=== PATIENT | female | born 1955 | race Caucasian/White ===

== ENCOUNTER 2024-07-09 06:13 | Day surgery (SDC) | payer MEDICARE, OTHER, SELFPAY ==
[2024-07-01 09:49] VITALS: BMI 30.5
[2024-07-09 06:46] VITALS: BP 135/72; PULSE 66; RESP 18; TEMP 36.8; O2SAT 98; BMI 30.3
--- NOTE | 2024-07-09 07:16 | EXP.ANES.CKL ---
[facility] Disclaimer: The information contained in this section may have been updated after the patient was seen, as this information can be updated by other users. Medical History History of COVID-19 Arthritis History of back pain Hyperlipidemia Hypertension Surgical History History of hysterectomy Family History Grandmother Bone cancer Social History Smoking Status: Never smoker alcohol intake: never substance use type: denies use current occupational status: retired Travel in the last 8 weeks: None caffeine: No [facility] Anesthesia Checklist Patient Identification Patient Identification: Verbal (Name & ) Structural Data Admitted From: Home Planned Operative Procedure/s: colonoscoy Consent for Planned Operative Procedure(s) Verified: Yes Airway Assessment Mallampati Score:: Class II C-Spine Mobility Assessed: Yes TMJ Mobility Assessed: Yes Dentition: Good Dentition Neurological Assessment Level of Consciousness: Awake, Alert and Appropriate Anesthesia Plan Anesthesia Risk discussed: Yes Anesthesia Plan: Verified ASA Class: II Anesthesia Type: MAC
[2024-07-09 07:37] VITALS: O2SAT 98
--- NOTE | 2024-07-09 07:37 | EXP.HP ---
History of Present Illness *Admission Date: 07/09/24 *History of present illness: Mrs. Barker is a 69-year-old female who is here for bright red rectal bleeding and diarrhea. The examination is deemed medically necessary for colonoscopy. The patient has been seen, interviewed and examined prior to the procedure by both myself and the anesthesia provider. [facility] Disclaimer: The information contained in this section may have been updated after the patient was seen, as this information can be updated by other users. Medical History (Updated 07/09/24 @ 07:42 by Augustine Young II, MD) History of COVID-19 Arthritis History of back pain Hyperlipidemia Hypertension Surgical History History of hysterectomy Family History Grandmother Bone cancer Social History (Updated 07/09/24 @ 07:17 by Benedicto Samuel CRNA) Smoking Status: Never smoker alcohol intake: never substance use type: denies use current occupational status: retired Travel in the last 8 weeks: None caffeine: No Review of Systems Review of Systems Review of systems (narrative): Negative *Cardiovascular Comments: Negative *Gastrointestinal Comments: Negative *Genitourinary Comments: Negative *Musculoskeletal Comments: Negative *Neurologic Comments: Negative Meds Home Medications and Allergies Home Medications ?Medication ?Instructions ?Recorded ?Confirmed ?Type sodium,potassium,mag sulfates 17.5 See Rx Instructions PO .COMPLEX 06/26/24 Rx gram-3.13 gram-1.6 gram oral soln #354 mL (Suprep Bowel Prep Kit) aspirin 81 mg capsule 81 mg PO HS 07/01/24 07/01/24 History diclofenac sodium 75 mg 75 mg PO DAILY PRN . 07/01/24 07/01/24 History tablet,delayed release estradiol 1 mg tablet 1 mg PO DAILY 07/01/24 07/01/24 History simvastatin 20 mg tablet 20 mg PO HS 07/01/24 07/01/24 History valsartan 320 1 tab PO DAILY 07/01/24 07/01/24 History mg-hydrochlorothiazide 12.5 mg tablet methocarbamol 500 mg tablet 500 mg PO HS PRN Pain 07/02/24 07/02/24 History New Prescriptions to Start Prescriptions: Allergies Allergy/AdvReac Type Severity Reaction Status Date / Time latex Allergy Rash Verified 07/01/24 09:32 Exam Data for Last 24 hours Vital signs and Labs for Last 24 Hours: Temp Pulse Resp BP Pulse Ox O2 Del Method 98.2 F 66 18 135/72 98 Room Air 07/09/24 06:46 07/09/24 06:46 07/09/24 06:46 07/09/24 06:46 07/09/24 06:46 07/09/24 06:46 I & O for Last 24 hours: Intake & Output 07/06/24 07/07/24 07/08/24 07/09/24 23:59 23:59 23:59 23:59 Weight 166 lb *Routine HEENT Exam Head: Present normocephalic Eye: Present EOMI and PERRL ENT: Present mucous membranes moist *Routine Neck Exam Neck: Present supple *Routine Respiratory Exam Respiratory: Present CTA bilaterally *Routine Cardiovascular Exam Cardiovascular: Present RRR *Routine Abdominal Exam Abdominal: Present soft and normoactive bowel sounds; Absent tenderness *Routine Rectal Exam Rectal:: deferred *Routine Genitalia Exam Genitalia:: deferred *Routine Extremities Exam Extremities: Absent cyanosis, clubbing or edema *Routine Skin Exam Skin: Present warm; Absent rash *Routine Neurological Exam Neurological: Present alert and oriented X3 Assessment and Plan *Assessment and plan (1) Bright red rectal bleeding: Status: Acute Category: Medical Code(s): K62.5 - Hemorrhage of anus and rectum (2) Diarrhea: Status: Acute Category: Medical Code(s): R19.7 - Diarrhea, unspecified (3) Change in bowel habits: Status: Acute Category: Medical Code(s): R19.4 - Change in bowel habit Plan A/P: 1. Bright red rectal bleeding intermittently with change in bowel habits and diarrhea is the preprocedural diagnosis. The patient will be anesthetized/sedated using MAC sedation. The patient has been seen and examined. Cardiac and lung assessment prior to the examination is stable. Proceed with planned colonoscopy
--- NOTE | 2024-07-09 07:42 | P.PCN_ITS ---
[facility] Procedure Note Date: 07/09/24 Time: 07:56 Procedure Note:: Colonoscopy Procedure Report: Colonoscopy with monopolar ablation/coagulation of internal hemorrhoids Endoscopist: Augustine Young II, MD Referring physician: Ángel Brannon MD Date of Procedure: July 09, 2024 Equipment: Olympus 190 variable stiffness pediatric colonoscope Sedation: MAC sedation Indication: Mrs. Barker is a 69-year-old female who reports a change in her bowel habits with diarrhea over the last 4 to 6 weeks. This has been resolving. She also has had some intermittent bright red blood per rectum that has occurred intermittently for the last 4 to 6 weeks. She had her last episode the day before yesterday. She reports some gassiness but reports no abdominal pain, cramps or bloating. She reports no weight loss or fever. She has had no mucus with her bowel movements. She reports no family history of colon cancer. Her last colonoscopy was 4 years ago. Procedure: Prior to the procedure, a history and physical exam was performed, and patient's medications and allergies were reviewed. The risks, benefits and alternatives of the sedation and procedure were discussed with the patient. All questions were answered and informed consent was obtained. The patient was brought to the procedure room. Patient identification and proposed procedure were verified by the physician and the nurse. The patient was placed in a left lateral decubitus position and the scope was passed under direct vision. Throughout the procedure, the patient's blood pressure, pulse, and oxygen saturations were monitored continuously. The colonoscopy was accomplished without difficulty. The patient tolerated the procedure well. Findings: On digital rectal examination there was normal rectal tone. There were no external hemorrhoids. The colonoscope was introduced through the anal canal to the rectum and advanced to the cecum. The ileocecal valve and appendiceal orifice were identified. The scope was advanced a short distance into the ileum which appeared grossly normal. The scope was then withdrawn into the colon. The cecum, ascending and transverse colon and mucosa were grossly normal. There were scattered diverticuli throughout the descending and sigmoid colon (LEFT colon). The rectum itself was normal. Upon retroflexion within the rectum there were grade 2 internal hemorrhoids. The hemorrhoids were ablated/coagulated using monopolar ablation/coagulation (forced) to destruction. The preparation was excellent throughout with [place] Preparation Score of 9. The cecal time was 12 minutes. Impression: 1. Left-sided diverticulosis 2. Grade 2 internal hemorrhoids status post monopolar ablation/coagulation Plan: I would encourage bulking fiber supplementation on a long-term daily maintenance basis. The patient's diarrhea is resolving. The patient will not require surveillance colonoscopy again for 10 years by ACS guidelines.
[2024-07-09 07:57] VITALS: BP 80/38; PULSE 65; RESP 16; TEMP 36.3; O2SAT 98
[2024-07-09 08:07] VITALS: BP 88/45; PULSE 67; RESP 16; TEMP 36.3; O2SAT 97
[2024-07-09 08:17] VITALS: BP 100/59; PULSE 63; RESP 16; TEMP 36.6; O2SAT 97
[2024-07-09 08:30] VITALS: BP 100/63; PULSE 63; RESP 16; TEMP 36.4; O2SAT 98
== END 2024-07-09 08:38 | disposition home or self-care (01) ==
PROVIDERS: PCP Internal Medicine; Visit Provider Internal Medicine Gastroenterology
PROC: (CPT 45388; principal; 2024-07-09 07:30)
DX: K62.5 Hemorrhage of anus and rectum (principal); R19.7 Diarrhea, unspecified; R19.4 Change in bowel habit; K57.30 Diverticulosis of large intestine without perforation or abscess without bleeding; K64.1 Second degree hemorrhoids
CPT/HCPCS: 45388; 99221